=== PATIENT | female | born 1945 | race Caucasian/White ===

== ENCOUNTER 2021-02-01 19:36 | Emergency (ER) | payer MEDICARE, OTHER ==
--- NOTE | 2021-02-01 20:07 | EDM.PDOC ---
ED HPI GENERAL MEDICAL PROBLEM - General Stated Complaint: nose Time Seen by Provider: 02/01/21 20:00 Source of Information: Reports: Patient History Limitations: Reports: No Limitations - History of Present Illness INITIAL COMMENTS - FREE TEXT/NARRATIVE: Kaylyn is concerned about a wound on the nose that she picked on and it started bleeding after the scab came out.No longer actively bleeding. - Related Data Allergies Allergy/AdvReac Type Severity Reaction Status Date / Time No Known Allergies Allergy Verified 02/01/21 19:59 ED ROS GENERAL - Review of Systems Review Of Systems: Comprehensive ROS is negative, except as noted in HPI. ED EXAM, SKIN/RASH Exam: See Below Text/Narrative:: 1 cm sized wound on the right nostril. Dry,non painful. Exam Limited By: No Limitations Course - Vital Signs Last Recorded V/S: Last Vital Signs Temp 97.6 F 02/01/21 19:36 Pulse 76 02/01/21 19:36 Resp 18 02/01/21 19:36 BP 154/99 H 02/01/21 19:36 Pulse Ox 99 02/01/21 19:36 Departure - Departure Time of Disposition: 20:08 Disposition: Home, Self-Care 01 Condition: Good Clinical Impression: Visit for wound check - Discharge Information Referrals: Quintin Pereyra MD [Primary Care Provider] - Sepsis Event Note (ED) - Evaluation Sepsis Screening Result: No Definite Risk - Focused Exam Vital Signs: Vital Signs Temp Pulse Resp BP Pulse Ox 02/01/21 19:36 97.6 F 76 18 154/99 H 99 - Problem List & Annotations (1) Visit for wound check SNOMED Code(s): 421749971, [id number], [id number], [id number] Code(s): Z51.89 - ENCOUNTER FOR OTHER SPECIFIED AFTERCARE Status: Acute Current Visit: Yes - Problem List Review Problem List Initiated/Reviewed/Updated: Yes - Assessment/Plan Plan: Change dressing and DC Home.
== END 2021-02-01 20:30 | disposition home or self-care (01) ==
LOC: FB.ED 19:36
DX: Z48.817 Encounter for surgical aftercare following surgery on the skin and subcutaneous tissue (principal)
CPT/HCPCS: 99281; 99282